=== PATIENT | female | born 1960 | race Caucasian/White ===

== ENCOUNTER 2016-10-03 03:27 | Inpatient (IN) | payer OTHER ==
[2016-10-03] VITALS (7 sets, daily range): BP systolic 106–130; BP diastolic 60–72
[~2016-10-03] VITALS: Ht 177.8 cm; Wt 90.7 kg
[~2016-10-03 03:27] MED LIST: LEXAPRO10 M1 PO; PRILOSEC OTC20 M1 PO; SYNTHROID25 MCG PO; XANAX0.5 M1 PO
--- NOTE | 2016-10-03 07:58 | Operative Report ---
Operative/Inv Procedure Report Surgery Date: 10/03/16 Name of Procedure: 1. Bilateral L4, L5 pars osteotomies, total facetectomies for deformity correctio 2. L4/5, L5/S1 far lateral discectomies 3. L4/5. L5/S1 TLIF with 4webb interbody cage, autograft, ICBM aspirate 4. L4-S1 segmental posterolateral arthrodesis with synthes expedium pedicle screws/rods, autograft, ICBM aspirate, allograft 5. iliac crest bone marrow aspirate 6. O-arm navigation Pre-Operative Diagnosis: 1. L4/5, L5/S1 stenosis, spondylolisthesis, scoliosis 2. Intractable L L5 radiculopathy, OBP Post-Operative Diagnosis: same Estimated Blood Loss: 450cc Surgeon/Global Supply Chain Director: WILLIAM KRAFT,Kody Uriostegui MD Anesthesia: general endotracheal tube Monitors: neurophysiologic monitoring IV Fluids: 2.8 L replaced with crystalloid, 220cc cell saver Implants: synthes Urine Output: 390cc via salvador Drains: medium JOE Specimens: L4/5, L5/S1 disc material Complications: none Condition: stable Operative Indication: Pt is a 56yo woman with intractable left lower extrem pain and parasthesias with lumbar scoliosis, severe left L5/S1 foraminal stenosis on imaging with severe L5 nerve root impingement as well as a left L4/5 HNP also with L L5 root compression who has failed a prolonged course of nonoperative care and now presents for surgical decompression and instrumented fusion. Operative/Procedure Note Note: Pt taken to OR and after appropriate pt identification and surgical time out, the pt underwent the smooth induction of general endotracheal anesthesia without incident. A salvador catheter was sterilely inserted. DVT prophylaxis was used throught the case. Neurophysiologic leads placed and baselines obtained. With all tubes and lines secured, the pt was then carefully turned into the prone position on the Mil frame and all pressure pts were well padded. The pt was given 2g IV kefzol in preop prophylaxis. The lumbar region low back was widely prepped and draped usual sterile fashion using povidone iodine solution. A vertical midline skin incision was marked from L4 to the sacrum infiltrated with local anesthetic. A small gauge spinal needle was placed superficially in the midline and a localizing x-ray was obtained to confirm the needle to be at the L4 5 interspace. The needle was withdrawn. A skin incision was made with a 10 blade knife. Dissection was carried down through subcutaneous tissue with the Bovie to the lumbodorsal fascia. The fascia was incised in midline and a subperiosteal dissection lumbar paraspinal muscles was performed bilaterally with the Bovie exposing underlying spinous processes lamina and facet joint capsules of L4 5 and L5-S1 bilaterally. A [place] 4 elevator was placed under the presumed L5 lamina and a curette at the pars of L4 and intraoperative lateral x-ray was obtained to confirm the correct levels. With the levels verified, we then exposed the transverse processes of L4, L5, and the sacral alar bilaterally and they were decorticated with a high-speed drill. Self-retaining retractors were placed beneath the muscle. Facet joint capsules of L4 5 and L5-S1 were stripped bilaterally with the Bovie. Bilateral pars osteotomies of L4 and L5 were performed using the bone scalpel and all bone was saved and passed off to the back table. Total facetectomies were completed bilaterally and the pedicles of L4, L5, and S1 were skeletonized. Working from the patient's symptomatic left side, we then carefully dissected thickened ligamentum flavum and exposing underlying the thecal sac and exiting L4 and L5 nerve roots. On the left, a total laminectomy of L5 was performed facilitating a complete decompression of the left L5 nerve root. Beginning with our attention focused L4 5, the dural sac was gently mobilized the midline under a Scovel retractor. The underlying disc annulus was identified. A cuff of venous tissue overlying it was coagulated and divided. The annulotomy was made with a 11 blade knife and discectomy performed with us disc space chelo and rasps until all the cartilaginous endplate and disc material was removed. The endplates were further prepared with the disc space curettes. Once the disc was prepared, it was irrigated. Morcellated autograft from the decompression was packed into the anterior L4 5 disc space. A 12 x 26 mm Del Cid cage was selected. This was filled with morcellated autograft and gently tamped into the L4 5 disc space under direct visualization and countersunk by approximately 2-3 mm. Its final position was visually excellent. With the L4 5 cage in position, we then focused our attention to L5-S1. A decompression of the exiting L5 and traversing S1 root was thoroughly performed with the Kerrison rongeurs and a complete decompression was achieved. In an analogous fashion, and with the dural elements protected, discectomy of the L5-S1 segment from the left of midline was performed with does disc space chelo and rasps and the endplates prepared with disc space curettes. Once all cartilaginous material was removed, a 10 x 26 mm for Del Cid was selected. Morcellated autograft was packed into the anterior disc space and the cage was gently tamped into the L5-S1 interspace under direct observation and countersunk by approximately 2-3 mm and its final position was visually confirmed and noted to be excellent. Monitoring was stable during placement of the cages. Once the cages were in position, we then attached the O arm reference arc to the right posterior iliac crest. 15 mL of bone marrow aspirate was initially removed with a Jamshidi needle and added to the autograft. The O arm was brought into play. Reference AP and lateral x-rays were obtained followed by a spin of the O arm. Reconstructions were confirmed. We then proceeded with placement of the posterior instrumentation with neuro navigation. Morcellated autograft was packed over the transverse processes at L4-L5 and the sacral alar bilaterally followed by a 6 mL of Master graft on both sides. Points for pedicle screws at L4, L5, and S1 were selected using the O arm at the junction of the pars, inferior aspect the rostral facet and the transverse process. The holes were started with the drill, traversed with a gearshift, sounded with a ball-tipped probe, tapped, and screws placed. At L4, a Synthes 6.5 x 40 mm screw placed on the left and a 6.5 x 45 mm screw placed on the right. At L5, 6.5 x 45 mm screws were placed bilaterally. At S1, 6.5 x 45 mm screw on the left and a 6.5 x 35 mm screw placed on the right without complication., They were stimulated with thresholds greater than 30 mA at all 6 locations. Once the screws were in position, the O arm was brought back into play and a second spin was performed. Because of a technical battery malfunction, only AP and lateral x-rays could be obtained which confirmed excellent position of all 6 pedicle screws. Interbody cages were also in excellent position with significant reduction of the patient's preoperative lumbar scoliosis. Intervertebral heights was recapitulated at both levels. Millimeter rods were then top loaded into the screws and locking caps placed. Gentle compression was placed across the screws and they were then finally tightened with an antitorque device all 6 locations. The wound was copiously irrigated with bacitracin and sterile saline irrigation. On entering was again noted to be stable and wound closure was begun. Prominence of Gelfoam was placed over the exposed dura. A medium JOE drain was placed into the wound and secured to the skin with a 2-0 nylon suture. 1 g of IV vancomycin powder was placed over the cut surfaces. 10 mL of long-acting local anesthetic was infiltrated into the paraspinal muscle for postoperative analgesia. The muscle was reapproximated with interrupted 0 Vicryl suture. The lumbodorsal fascia was reapproximated with interrupted 0 Vicryl suture. The skin was closed in layers with interrupted 2-0 Vicryl suture and the skin was closed with brent. The right hip was removed. The wound was closed with interrupted 2-0 Vicryl in subcutaneous tissue and brent in the skin. The wounds were cleaned and dried. Bacitracin and sterile occlusive dressings were placed. The patient was returned to the supine position, awakened, extubated, and taken to PACU in stable condition. She was noted to be moving all 4 extremities at the completion of the case. All sponge, needle, and injuring counts are correct at the completion of the procedure 3. Neurophysiologic monitoring was stable throughout the case. Discharge Disposition: PACU
--- NOTE | 2016-10-03 10:45 | RADIOLOGY REPORT ---
EXAMINATION: XR LUMBAR SPINE CLINICAL INFORMATION: L4-L5 and L5-S1 stabilization in OR. COMPARISON: Lumbar spine films and CT scan of the lumbar spine dated 08/16/2016. TECHNIQUE: Lateral views of the lumbar spine were obtained portably in the operating room. FINDINGS: Film 1: A surgical marker is seen posteriorly at the level of the L4-L5 interspace. Film 2: A surgical probe is seen with tip just inferior to the L4 pedicle. A second surgical probe is seen with tip pointing to the L5-S1 facet joint. IVC filter is in place with tip at the L2-L3 level. IMPRESSION: Vertebral level localization as discussed above.
--- NOTE | 2016-10-03 12:44 | Operative Report ---
Operative/Inv Procedure Report Surgery Date: 10/03/16 Name of Procedure: L4 5 L5-S1 transforaminal lumbar interbody fusion L4 5 and L5-S1 bilateral posterior osteotomies for decompression L4 5 5 1 posterolateral fusion L4 5 5 1 posterior lateral segmental instrumentation using Synthes pedicle screws L4 5 5 1 placement of intervertebral biomechanical device 4 web Use of autograft use of allograft Use of bone marrow aspirate from separate fascial incision Stealth navigation Left-sided approach for 4551 far lateral discectomy Pre-Operative Diagnosis: Lumbar stenosis and spondylolisthesis Post-Operative Diagnosis: Same Estimated Blood Loss: 450 Surgeon/Analytical Sciences Director: zeinab manley and SHABBIR THOMAS MD Anesthesia: general endotracheal tube Operative/Procedure Note Note: After the successful administration of general endotracheal anesthesia all lines tubes and monitors were placed per anesthesia team the patient was positioned prone on the Mil table the pressure points padded. We prepped the patient usual standard fashion and placed a needle under sterile conditions into the 45 interlaminar space. X-ray was used to confirm level, after levels confirmed reprepped and draped patient usual standard fashion the needle was removed. We then infiltrated 10 mL of lidocaine with epinephrine into the subcutaneous tissues using #10 blade to incise the skin this was deepened Bovie electrocautery to thoracolumbar fascia which was divided and a subperiosteal dissection was carried out exposing spinous process lamina L4 5 and S1 care taken not to denude the joint capsules. We obtained another x-ray with a [place] under the lamina of L5 to confirm level. After levels confirmed we denuded the joints at 4551 preserved 34 joint, we exposed the transverse processes bilaterally and decorticated them with a high-speed drill. We then made cuts in the pars meticulous bilaterally at L4 and L5 and the lamina of L4 and L5 bilaterally removing the descending facets of L4 and L5, we made cuts in the superior articular facets of S1 and L5 on the left-hand side providing wide access to the far lateral disc herniations. We identified the exiting L4 the traversing and exiting L5 and the traversing S1 nerve roots on the left-hand side. They're protected we entered the disc space #11 blade performed a thorough discectomies at L4 5 and 51 using accommodation [facility] rasps. We placed a 12 mm x 26 mm L4 5 cage at L4 5 and a 10 mm 26 mm cage at L5-S1 was placed under direct visualization. The disc space was prepped morselized autograft as well as the spacer. We then placed the pictures. The right iliac crest brought the O arm in for a spin. On the [email or web address] workstation we planned our screw entry points and trajectories. We then used a high-speed drill to drill her bilateral symptoms the pars reticularis transverse process facet complex bilaterally deepened it with anatomy lanky probe With a 6 mm tap and placed pedicle screws after the transverse processes were packed with morselized autograft and master graft. At L4 we used 6 5 x 40 on the left a 6 5 x 45 on the right at L5 1 6 5 x 40 516 5 x 45 the right at S1 1 6 5 x 45 mm a 6 5 x 35 the right. All screws stimulated above threshold. We brought the O arm in for confirmatory spin, secondary to difficulties with technical AP and lateral fluoroscopic shot were only able to be obtained. All hardware was in excellent position. We then placed precontoured 55 mm rods and placed secured in place with the set screws and plate compression across the disc space at all levels. There were tightened with a torque limiting chair car driver. The wound was copiously irrigated bacitracin irrigation hemostasis obtained 1 g vancomycin powder was placed the subcutaneous tissues as well as 20 mL of lipid soak Marcaine. A separate stab incision #7 JOE drain was left in place. The wound was then closed in layers using 0 Vicryl for muscle and fascia 2-0 interrupted Vicryl for deep dermis and skin was closed with brent. The percutaneous pin was removed and the wound was closed as well. At the end the case all needle counts sponge and lengths were correct a dry sterile dressing was applied patient to recovery in stable condition.
--- NOTE | 2016-10-03 14:48 | PN- Neurosurgical ---
Subjective Subjective: Post op check Awake and alert post op Pain tolerable at this time, denies nausea No specific complaints Objective Vital Signs and I&Os VSS, afebrile Physical Exam: urine output: salvador 700cc past 2 hours ILANA: 50cc sersang since OR General: alert and oriented times three, pt lying in bed Chest: clear anteriorly bilaterally, RRR Abd: soft, nontender Ext: warm, no edema, good 5/5 STEFFEN all 4 ext, positive sensate all 4 ext Wound: dressed, dry Current Medications: Current Medications Sig/[place] Start time Last Medication Dose Route Stop Time Status Admin Acetaminophen 650 MG Q4P PRN 10/03 1345 AC PO Alprazolam 0.5 MG DAILY PRN 10/03 1445 AC PO 10/10 1444 Bisacodyl 10 MG DAILY NEEDED PRN 10/03 1345 AC IA Cefazolin Sodium 2,000 MG ONCE 10/03 0000 NR IV 10/03 2359 Diazepam 5 MG Q8P PRN 10/03 1345 AC PO Docusate Sodium 100 MG TID 10/03 1600 AC PO Escitalopram Oxalate 10 MG DAILY 10/04 1000 AC PO Heparin Sodium 5,000 UNIT Q8 10/03 1400 AC (Porcine) SC Hydromorphone HCl 2 MG Q4-6 PRN PRN 10/03 1345 AC PO Hydromorphone HCl 50 MG Q24H PRN 10/03 1330 AC Sodium Chloride 45 ML IV Ketorolac 15 MG Q6P PRN 10/03 1345 AC Tromethamine IV 10/08 1344 Levothyroxine Sodium 0.025 MG DAILY 10/04 1000 AC PO Omeprazole 20 MG DAILY AC 10/04 0700 AC PO Ondansetron HCl 4 MG Q6P PRN 10/03 1345 AC IV Oxycodone/ 2 TAB Q4P PRN 10/03 1345 AC Acetaminophen PO Senna 374 MG QPM PRN 10/03 1345 AC PO Sodium Chloride 1,000 ML Q10H 10/03 1330 AC IV 10/04 0929 Trimethobenzamide HCl 200 MG Q6P PRN 10/03 1345 AC IM Zolpidem Tartrate 2.5 MG AT BEDTIME PRN 10/03 1336 AC PO Assessment/Plan Assessment/Plan 56 yo female s/p Bilateral L4, L5 pars osteotomies, total facetectomies for deformity correction lateral discectomies with interbody cage/autograft/pedicle screws/rods, ICBG pain management - 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 Yes (24 hrs post op) Venous Thromboembolism VTE Risk Factors: Age > 40, Surgery VTE Contraindications: No Contraindications VTE Prophylaxis Ordered Inpt: Mech & Pharm VTE Diagnosis: No Beta Anibal Is Beta Anibal a Home Med? No Antibiotics Is Patient on Antibiotics? Yes If Yes: prophylaxis (zachary operative)
--- NOTE | 2016-10-03 15:02 | RADIOLOGY REPORT ---
EXAMINATION: XR LUMBOSACRAL SPINE CLINICAL INFORMATION: L4-L5 and L5-S1 stabilization in OR with forearm. COMPARISON: CT scan of the lumbar spine dated 08/16/2016. TECHNIQUE: CT images through the lower lumbar spine were obtained. FLUOROSCOPY TIME: 6.21 seconds. FINDINGS: There is imaging of the L3-S4 segments demonstrating placement of intervertebral disc spacers at the L4-L5 and L5-S1 levels. Alignment is anatomic. Degenerative spurring is noted at these levels as well as at L3-L4. Postsurgical subcutaneous emphysema is noted in the soft tissues. There is evidence of laminectomy at the L5-S1 level and partial laminectomy at L4. IMPRESSION: Disc spacer placements at L4-L5 and L5-S1 levels. Anatomic alignment.
--- NOTE | 2016-10-03 15:30 | NUR ---
ARRIVED TO FLOOR VIA BED FROM PACU. A & O X 3. O2 2L IN PLACE, VSS. C/O MILD PAIN TO LOWER BACK, DILAUDID PODOPEDIATRICIAN IN PLACE. DRESSING ASSESSED, SMALL AMOUNT OF BLOODY DRAINAGE NOTED, HAS YET TO SOAK THROUGH DRESSING. +PULSE PERIPHERALLY, PT DENIES ANY NUMBNESS OR TINGLING. ALPS AND NIKITA STOCKINGS APPLIED. IVF INFUING. MCGREGOR TO GRAVITY. JOE DRAIN NOTED TO RIGHT BACK. ORIENTED TO CALL SYSTEM. AT BEDSIDE. WILL MONITOR.
--- NOTE | 2016-10-03 15:58 | Admission Core Measures ---
Admission Meds I reviewed the following Meds: Current Medications Sig/[place] Start time Last Medication Dose Stop Time Status Admin Acetaminophen 650 MG Q4P PRN 10/03 1345 AC (Tylenol) Alprazolam 0.5 MG DAILY PRN 10/03 1445 AC (Xanax) 10/10 1444 Bisacodyl 10 MG DAILY NEEDED PRN 10/03 1345 AC (Dulcolax Supp) Cefazolin Sodium 2,000 MG ONCE 10/03 0000 NR (Kefzol-Ancef Inj) 10/03 2359 Diazepam 5 MG Q8P PRN 10/03 1345 AC (Valium) Docusate Sodium 100 MG TID 10/03 1600 AC (Colace) Escitalopram Oxalate 10 MG DAILY 10/04 1000 AC (Lexapro) Heparin Sodium 5,000 UNIT Q8 10/03 1400 AC (Porcine) Hydromorphone HCl 2 MG Q4-6 PRN PRN 10/03 1345 AC (Dilaudid) Hydromorphone HCl 50 MG Q24H PRN 10/03 1330 AC (Dilaudid) Sodium Chloride 45 ML (Normal Saline 50ML Bag) Ketorolac 15 MG Q6P PRN 10/03 1345 AC Tromethamine 10/08 1344 (Toradol) Levothyroxine Sodium 0.025 MG DAILY 10/04 1000 AC (Synthroid) Omeprazole 20 MG DAILY AC 10/04 0700 AC (Prilosec) Ondansetron HCl 4 MG Q6P PRN 10/03 1345 AC (Zofran) Oxycodone/ 2 TAB Q4P PRN 10/03 1345 AC Acetaminophen (Percocet) Senna 374 MG QPM PRN 10/03 1345 AC (Senokot) Sodium Chloride 1,000 ML Q10H 10/03 1330 AC (Normal Saline 0.9%) 10/04 0929 Trimethobenzamide HCl 200 MG Q6P PRN 10/03 1345 AC (Tigan) Zolpidem Tartrate 2.5 MG AT BEDTIME PRN 10/03 1336 AC (Ambien) Acute Coronary Syndrome Inclusion Criteria ACS Diagnosis No Inpatient Core Measures LDL Reminder: If No, please order W/I first 24hr of stay Congestive Heart Failure Inclusion Criteria CHF Diagnosis No Cerebrovascular accident Inclusion Criteria CVA/TIA Diagnosis No Inpatient Core Measures Bedside Swallow Eval Reminder: If BSE failed, place ST order Antithrombotic Reminder: Order Antithrombotic Medication by end of day 2 Antithrombotic Reminder: Document Reason Antithrombotic Not ordered by end of day 2 AFIB/Flutter Reminder: If Present, add to problem list AFIB/Flutter Reminder: Order Anticoag Medication for pts with AFIB/Flutter Atherosclerosis Reminder: If Present, add to problem list LDL Reminder: If No, please order W/I first 24hr of stay PT Order Reminder: If No, please order Venous thromboembolism Inpatient Core Measures VTE Risk Factors: Age > 40, Surgery VTE Prophylaxis Ordered Inpt Mech & Pharm No Mech VTE prophylaxis d/t No contraindications No VTE Pharm Prophylaxis d/t No contraindications Inclusion Criteria - Per Current guidelines, there needs to be overlap - treatment for the first 5 days of Warfarin therapy. - Parenteral Anticoagulation (IV or SC) needs to be - given along with Warfarin therapy. VTE Diagnosis No VTE Type NONE VTE Confirmed by (Test) NONE Problem List As ranked by this Provider includes Assessment & Plan 1. Status post lumbar surgery HOME MEDS Home Med List Alprazolam (Xanax) 0.5 MG TABLET 1 TAB PO DAILY NEEDED ANXIETY (Reported) Escitalopram Oxalate (Lexapro) 10 MG TABLET 1 TAB PO DAILY ANXIETY (Reported) Levothyroxine Sodium (Synthroid) 25 MCG TABLET 1 TAB PO DAILY THYROID ( Reported) Omeprazole Magnesium (Prilosec Otc) 20 MG TABLET.DR 2 TAB PO D REFLUX ( Reported)
[2016-10-04] VITALS (8 sets, daily range): BP systolic 108–130; BP diastolic 60–70
--- NOTE | 2016-10-04 07:28 | PN- Neurosurgical ---
Subjective Subjective: Pt doing well without any signif complaints. Reports LLE pain improved c/w preop. Review of Systems: h/o DVT s/p IVC filter Objective Vital Signs and I&Os Vital Signs Date Time Temp Pulse Resp B/P Pulse O2 O2 Flow FiO2 Ox Delivery Rate 10/04 0400 97.8 80 18 110/70 10/04 0400 97.8 80 18 110/70 97 Nasal Cannula 10/04 0207 98.0 81 20 118/70 95 Nasal 2.0L Cannula 10/04 0200 98.0 81 20 118/70 10/04 0000 98.1 74 20 110/70 10/04 0000 94 Nasal 2.0L Cannula 10/03 2353 98.1 74 20 110/70 95 Nasal Cannula 10/03 2200 98.1 74 20 110/70 10/03 2100 97.9 86 20 130/67 94 Nasal Cannula 10/03 2000 97.9 86 20 130/67 10/03 1800 97.5 89 18 106/60 10/03 1800 97.5 89 18 106/60 94 Nasal 2.0L Cannula 10/03 1600 Nasal 2.0L Cannula 10/03 1600 97.6 81 18 120/72 10/03 1527 97.6 81 18 120/72 94 Nasal 2.0L Cannula Intake & Output 10/04 0800 10/04 0000 10/03 1600 10/03 0800 10/03 0000 10/02 1600 Intake Total 1050 1100 Output Total 1250 1560 Balance -200 -460 Intake, IV 800 800 Intake, Oral 250 300 Number 0 Bowel Movements Output, 110 Drainage Output, Urine 1250 1450 Patient 90.718 kg Weight Physical Exam: AF, VSS awake and alert, conversive motor is 5/5 bilat LE, sensory intact bilat, no calf tenderness or swelling incision is c,d,i JOE with 110cc serosanguinous dc last shift salvador is out abd soft, NT with NABS Current Medications: Current Medications Sig/[place] Start time Last Medication Dose Route Stop Time Status Admin Acetaminophen 650 MG Q4P PRN 10/03 1345 AC PO Alprazolam 0.5 MG DAILY PRN 10/03 1445 AC PO 10/10 1444 Bisacodyl 10 MG DAILY NEEDED PRN 10/03 1345 AC MI Cefazolin Sodium 2 GM Q8H 10/03 1999 AC 10/04 N/A 1 UNIT IV 10/05 1229 0406 Cefazolin Sodium 2,000 MG ONCE 10/03 0000 DC IV 10/03 2359 Diazepam 5 MG Q8P PRN 10/03 1345 AC PO Docusate Sodium 100 MG TID 10/03 1600 AC 10/03 PO 2101 Escitalopram Oxalate 10 MG DAILY 10/04 1000 AC PO Heparin Sodium 5,000 UNIT Q8 10/03 1400 AC 10/04 (Porcine) SC 0615 Hydromorphone HCl 2 MG Q4-6 PRN PRN 10/03 1345 AC PO Hydromorphone HCl 2 MG .STK-MED ONE 10/03 1333 DC IM 10/03 1334 Hydromorphone HCl 50 MG Q24H PRN 10/03 1330 AC Sodium Chloride 45 ML IV Ketorolac 15 MG Q6P PRN 10/03 1345 AC Tromethamine IV 10/08 1344 Levothyroxine Sodium 0.025 MG DAILY 10/04 1000 AC 10/04 PO 0615 Omeprazole 20 MG DAILY AC 10/04 0700 AC PO Ondansetron HCl 4 MG Q6P PRN 10/03 1345 AC IV Oxycodone/ 2 TAB Q4P PRN 10/03 1345 AC Acetaminophen PO Senna 374 MG QPM PRN 10/03 1345 AC PO Sodium Chloride 1,000 ML Q10H 10/03 1330 AC 10/03 IV 10/04 0929 2052 Trimethobenzamide HCl 200 MG Q6P PRN 10/03 1345 AC IM Zolpidem Tartrate 10 MG AT BEDTIME PRN 10/03 2059 AC 10/03 PO 2109 Zolpidem Tartrate 2.5 MG AT BEDTIME PRN 10/03 1336 DC PO Assessment/Plan Assessment/Plan Pt POD1 s/p L4/5, L5/S1 TLIF and doing well. Neurologically intact. 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 No Antibiotics Is Patient on Antibiotics? 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
[2016-10-05 03:30] VITALS: BP 140/70
--- NOTE | 2016-10-05 06:00 | NUR ---
PT REPORTS SLEPT WELL AND REFUSES PAIN MEDICATION AT THIS TIME, PAIN 10/28.
[2016-10-05 06:30] VITALS: BP 118/70
--- NOTE | 2016-10-05 08:05 | PN- Neurosurgical ---
Subjective Subjective: Pt doing well. no complaints. Objective Vital Signs and I&Os Vital Signs Date Time Temp Pulse Resp B/P Pulse O2 O2 Flow FiO2 Ox Delivery Rate 10/05 0630 98.0 73 18 118/70 92 Room Air 10/05 0330 98.2 73 18 140/70 94 Room Air 10/04 2250 97.9 70 20 128/66 93 Room Air 10/04 1920 97.9 83 20 108/60 93 Nasal Cannula 10/04 1527 Room Air 10/04 1525 98.0 86 18 118/70 95 Nasal 2.0L Cannula 10/04 0805 97.6 80 20 130/60 96 Nasal 2.0L Cannula Intake & Output 10/05 0800 10/05 0000 10/04 1600 10/04 0800 10/04 0000 10/03 1600 Intake Total 270 043 787 3940 1100 Output Total 490 857 006 2236 1560 Balance -220 -10 -680 -290 -460 Intake, IV 150 150 80 800 800 Intake, Oral 120 480 100 250 300 Number 0 Bowel Movements Output, 40 40 90 110 Drainage Output, Urine 450 149 636 0028 1450 Patient 90.718 kg Weight Physical Exam: Pt AF, VSS Reports preop left leg pain is resolved neurologically intact ambulating on own in brace troy po voiding spontaneously JOE with 40cc out last 2 shifts serosanguinous incision is c,d,i and flat Current Medications: Current Medications Sig/[place] Start time Last Medication Dose Route Stop Time Status Admin Acetaminophen 650 MG Q4P PRN 10/03 1345 AC PO Alprazolam 0.5 MG DAILY PRN 10/03 1445 AC 10/04 PO 10/10 1444 2141 Bisacodyl 10 MG DAILY NEEDED PRN 10/03 1345 AC MA Cefazolin Sodium 2 GM Q8H 10/03 2000 AC 10/05 N/A 1 UNIT IV 10/05 1229 0339 Diazepam 5 MG Q8P PRN 10/03 1345 AC 10/04 PO 2141 Docusate Sodium 100 MG TID 10/03 1600 AC 10/04 PO 2141 Escitalopram Oxalate 10 MG DAILY 10/04 1000 AC 10/04 PO 0847 Hydromorphone HCl 2 MG Q4-6 PRN PRN 10/03 1345 AC 10/04 PO 2008 Hydromorphone HCl 50 MG Q24H PRN 10/03 1330 DC Sodium Chloride 45 ML IV Ketorolac 15 MG Q8P PRN 10/05 0800 AC Tromethamine IV Ketorolac 15 MG Q8 10/04 0800 DC 10/04 Tromethamine IV 10/04 2201 2141 Levothyroxine Sodium 0.025 MG DAILY 10/04 1000 AC 10/04 PO 0615 Omeprazole 40 MG 1500 10/05 1500 AC PO Omeprazole 20 MG ONCE ONE 10/04 1515 DC PO 10/04 1516 Omeprazole 20 MG DAILY AC 10/04 0700 DC 10/04 PO 1318 Ondansetron HCl 4 MG Q6P PRN 10/03 1345 AC IV Oxycodone/ 2 TAB Q4P PRN 10/03 1345 AC Acetaminophen PO Patient Medication 1 ED .STK-MED ONE 10/04 1418 DC Teaching ED 10/04 1419 Senna 374 MG QPM PRN 10/03 1345 AC PO Sodium Chloride 1,000 ML Q10H 10/03 1330 DC 10/03 IV 10/04 0929 2052 Trimethobenzamide HCl 200 MG Q6P PRN 10/03 1345 AC IM Zolpidem Tartrate 10 MG AT BEDTIME PRN 10/03 2059 AC 10/03 PO 2109 Assessment/Plan Assessment/Plan Pt POD2 s/p L4/5, L5/S1 decompression and fusion and doing well. -dc JOE and antibiotics -home later today -toradol po for 48 hrs, po dilaudid for pain control at discharge, stool softener prn -no driving, no submerging incision and cover occlusively for showers -fu with pa 2 weeks for wound check and staple removal -brace when OOB Core Measures/Miscellaneous Cade Catheter Date In: 10/03/16 Venous Thromboembolism VTE Risk Factors: Age > 40, Surgery VTE Contraindications: No Contraindications VTE Prophylaxis Ordered Inpt: Mech & Pharm VTE Diagnosis: No VTE Type: NONE VTE Confirmed by (Test): NONE Beta Anibal Is Beta Anibal a Home Med? No Antibiotics Is Patient on Antibiotics? Yes If Yes: prophylaxis (zachary operative) Attending MD Review Statement Attending Statement Attending MD Statement: examined this patient, discuss w/resident/PA/CREATIVE MANAGER, discussed w/nursing
--- NOTE | 2016-10-05 08:19 | Patient Discharge Instructions ---
Discharge Instructions General Discharge Information You were seen/treated for: 1. L4/5, L5/S1 stenosis, spondylolisthesis, scoliosis 2. Intractable L L5 radiculopathy, OBP You had these procedures: Surgery Date: 10/03/16 Name of Procedure: 1. Bilateral L4, L5 pars osteotomies, total facetectomies for deformity correctio 2. L4/5, L5/S1 far lateral discectomies 3. L4/5. L5/S1 TLIF with 4webb interbody cage, autograft, ICBM aspirate 4. L4-S1 segmental posterolateral arthrodesis with synthes expedium pedicle screws/rods, autograft, ICBM aspirate, allograft 5. iliac crest bone marrow aspirate 6. O-arm navigation Watch for these problems: fever>101.3, increased pain, redness/swelling/drainage Call Surgeon to remove: [place] Other wound care: no driving, no submerging incision and cover occlusively for showers Special Instructions: Take Dilaudid every 3 hours as needed for pain. You may take Tylenol for pain as well. Xanax at night for sleeping Toradol every 6 hours as needed for pain for the first 2 days only Diet Continue normal diet: Yes Recommended Diet: Regular Activity Full Activity/No Limits: No Activity Self Limited: Yes Activity Limited to: Weight bear as tolerated Other activity limits: brace when OOB Acute Coronary Syndrome Inclusion Criteria At DC or during hospital stay patient has or had the following: ACS DIAGNOSIS No Discharge Core Measures Meds if any: Prescribed or Continued at Discharge Meds if any: NOT Prescribed or Continued at Discharge Congestive Heart Failure Inclusion Criteria At DC or during hospital stay patient has or had the following: CHF DIAGNOSIS No Discharge Core Measures Meds if any: Prescribed or Continued at Discharge Meds if any: NOT Prescribed or Continued at Discharge Cerebrovascular accident Inclusion Criteria At DC or during hospital stay patient has or had the following: CVA/TIA Diagnosis No Discharge Core Measures Meds if any: Prescribed or Continued at Discharge Meds if any: NOT Prescribed or Continued at Discharge Venous thromboembolism Inclusion Criteria VTE Diagnosis No VTE Type NONE VTE Confirmed by (Test) NONE Discharge Core Measures - Per Current guidelines, there needs to be overlap - treatment for the first 5 days of Warfarin therapy. - If discharged on Warfarin prior to 5 days of - overlap therapy, the patient will need to be - assessed for post discharge needs including - *Post discharge parental anticoagulation - *Warfarin and/or parental anticoagulation education - *Follow up date to check INR post discharge At least 5 days overlap therapy as Inpatient No Meds if any: Prescribed or Continued at Discharge Note: Overlap Therapy is Warfarin and Anticoagulant Meds if any: NOT Prescribed or Continued at Discharge
[2016-10-05] MEDS ORDERED: KETOROLAC TROME10 M1 PO ×2 (08:24→08:50)
[2016-10-05] MEDS ORDERED: DILAUDID2 M1 PO ×2 (08:24→08:50)
[2016-10-05] MEDS ORDERED: DOCUSATE SODIU100 M3 PO (08:24)
--- NOTE | 2016-10-05 08:25 | Surg Short-stay <48hrs Dis Sum ---
Visit Information Visit Dates Admission Date: 10/03/16 Discharge Date: 10/05/16 Surgical Short Stay DC Summary Admission Diagnosis: 1. L4/5, L5/S1 stenosis, spondylolisthesis, scoliosis 2. Intractable L L5 radiculopathy, OBP Final Diagnosis: same as above Procedure(s): Surgery Date: 10/03/16 Name of Procedure: 1. Bilateral L4, L5 pars osteotomies, total facetectomies for deformity correctio 2. L4/5, L5/S1 far lateral discectomies 3. L4/5. L5/S1 TLIF with 4webb interbody cage, autograft, ICBM aspirate 4. L4-S1 segmental posterolateral arthrodesis with synthes expedium pedicle screws/rods, autograft, ICBM aspirate, allograft 5. iliac crest bone marrow aspirate 6. O-arm navigation Summary/Significant Findings: Operative Indication: Pt is a 56yo woman with intractable left lower extrem pain and parasthesias with lumbar scoliosis, severe left L5/S1 foraminal stenosis on imaging with severe L5 nerve root impingement as well as a left L4/5 HNP also with L L5 root compression who has failed a prolonged course of nonoperative care and now presents for surgical decompression and instrumented fusion. Post-operative course uneventful. Pain control transitioned from IV to oral, and given presriptions for both dilaudid and toradol at the time of discharge for pain control. JOE drain removed on post-op day#2, when the output was reasonable, at the direction of . Antibiotics were stopped at the time of the drain removal. Out of bed with brace. The patient will be discharge home today, post-op day#2, and will be given specific discharge instructions as per . Condition at Discharge: stable Discharge Disposition: home or self care Discharge instructions provided to patient/family: Yes Post discharge follow-up plan: two week follow up appointment with for incision check and staple removal no driving no submerging incision and cover occlusively for showers brace when OOB
[2016-10-05] MEDS ORDERED: XANAX0.5 M1 PO (08:50)
--- NOTE | 2016-10-05 09:41 | Event Note ---
Event Note Event Note: DRESSING CHANGED LOWER BACK. MILD TO MODERATE S/S DISCHARGE ON DRESSING. INCISION IS CDI, NO ERYTHEMA. CATHERINE IN PLACE. JOE DRAIN WITH 45CC S/S FLUID. DRAIN PULLED, DSD APPLIED. PT IS AMBULATORY IN ROOM WITHOUT DIFFICULTY. PT TOLERATED WELL AND IS PLANNING ON DC HOME TODAY AFTER LUNCH.
== END 2016-10-05 13:10 | DRG 460 ==
LOC: ENRESERVTM → ENRESERVDT → SDA 03:27 → ENPENDDIS 03:27 → 2NA 15:33
PROVIDERS: ADMIT Neurological Surgery
PROC: 07DR3ZZ Extraction of Iliac Bone Marrow, Percutaneous Approach (ICD-10-PCS; principal; 2016-10-03)
PROC: 0ST40ZZ Resection of Lumbosacral Disc, Open Approach (ICD-10-PCS; principal; 2016-10-03)
PROC: 0ST20ZZ Resection of Lumbar Vertebral Disc, Open Approach (ICD-10-PCS; principal; 2016-10-03)
PROC: 0SG30AJ Fusion of Lumbosacral Joint with Interbody Fusion Device, Posterior Approach, Anterior Column, Open Approach (ICD-10-PCS; principal; 2016-10-03)
DX: M48.07 Spinal stenosis, lumbosacral region (principal); E03.9 Hypothyroidism, unspecified; K21.9 Gastro-esophageal reflux disease without esophagitis
CPT/HCPCS: 2NAP; 36415; 72020; 72100; 87086; 88304; C9290; J0131; J0690; J1170; J1644; J2405; J3250; J3370